=== PATIENT | female | born 1945 | race Caucasian/White ===

== ENCOUNTER 2017-10-12 07:45 | Outpatient (CLI) | payer OTHER | END 2017-10-12 07:50 | disposition home or self-care (01) | LOC: LAB 07:45 | DX: M05.79 Rheumatoid arthritis with rheumatoid factor of multiple sites without organ or systems involvement (principal) ==

== ENCOUNTER 2017-10-17 14:06 | Outpatient (CLI) | payer OTHER | END 2017-10-17 14:17 | disposition home or self-care (01) | LOC: RAD 14:06 | DX: M06.842 Other specified rheumatoid arthritis, left hand (principal); M06.841 Other specified rheumatoid arthritis, right hand; M06.872 Other specified rheumatoid arthritis, left ankle and foot; M06.871 Other specified rheumatoid arthritis, right ankle and foot ==